=== PATIENT | female | born 1995 | race African-American/Black ===

== ENCOUNTER 2018-10-23 10:19 | Emergency (ER) | payer SELFPAY ==
[2018-10-23 11:14] LABS: Urine Specific Gravity 1.015 (1.005-1.030)
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
--- NOTE | 2018-10-23 11:49 | RAD REPORT ---
EXAM DESCRIPTION: CT - Facial Bones W/ Mpr - 10/23/2018 11:24 am CLINICAL HISTORY: Facial injury TECHNIQUE: Computed axial tomography of the face was obtained. Coronal and sagittal reconstruction w as performed. All CT scans are performed using dose optimization technique as appropriate and may include automated exposure control or mA/KV adjustment according to patient size. FINDINGS: A fracture is not seen. A TMJ dislocation is not noted. The globes are intact. Fluid within the sinuses is not seen. IMPRESSION: Negative for a facial fracture.
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
== END 2018-10-23 12:49 | disposition home or self-care (01) ==
LOC: ER 10:19
DX: S39.012A Strain of muscle, fascia and tendon of lower back, initial encounter (principal); S73.101A Unspecified sprain of right hip, initial encounter; V49.50XA Passenger injured in collision with unspecified motor vehicles in traffic accident, initial encounter
CPT/HCPCS: 70450; 70486; 72125; 72170; 76377; 81025; 99285